=== PATIENT | male | born 1965 | race Two or more races ===

== ENCOUNTER 2019-09-20 08:37 | Outpatient (CLI) | payer OTHER | END 2019-09-20 08:48 | disposition home or self-care (01) | LOC: RX STUDY 08:37 | PROVIDERS: ATTEND General Practice | DX: R10.10 Upper abdominal pain, unspecified (principal) ==

== ENCOUNTER 2022-04-26 11:34 | Emergency (ER) | payer OTHER ==
[~2022-04-26] VITALS: Ht 165.1 cm; Wt 79.4 kg
[2022-04-26] MEDS ORDERED: AZOR 10-40 MG1 EACH PO (12:15)
== END 2022-04-26 16:03 | disposition home or self-care (01) ==
LOC: ER 11:34
DX: J40 Bronchitis, not specified as acute or chronic (principal); J47.9 Bronchiectasis, uncomplicated